=== PATIENT | male | born 1980 | race African-American/Black ===

== ENCOUNTER 2019-04-19 16:23 | Emergency (ER) | payer OTHER ==
[~2019-04-19] VITALS: Ht 188 cm; Wt 158.8 kg
--- NOTE | 2019-04-19 16:27 | NUR ---
"[id number] AND [employer], INCUSTODY, BROKEN INTO PRIVATE [facility] BUILDING RESTAURANT, LAC ON THE RIGHT HAND" PT ON MONITOR, VSSEARL NOTED, PENDING MD GOODEN
--- NOTE | 2019-04-19 16:49 | NUR ---
JENNIFER WASHINGTON --[facility] INTENSIVE [facility]ARE [facility]
[2019-04-19 17:06] LABS: BASOPHILS # (AUTO) 0.1 /CMM (0.0-0.2); BASOPHILS % (AUTO) 0.9 % (0.0-2.0); EOSINOPHILS % (AUTO) 2.2 % (0.0-6.0); HEMATOCRIT 39 % (39-51); HEMOGLOBIN 12.8 g/dL (13.5-17.5); LYMPHOCYTES # (AUTO) 1.3 /CMM (0.8-4.8); LYMPHOCYTES % (AUTO) 19.9 % (20.0-44.0); MEAN CORPUSCULAR HGB CONC 33 g/dl (31.0-36.0); MEAN CORPUSCULAR VOLUME 85 fL (80-96); MONOCYTES # (AUTO) 0.9 /CMM (0.1-1.30); MONOCYTES % (AUTO) 13.5 % (2.0-12.0); NEUTROPHILS # (AUTO) 4.3 /CMM (1.8-8.9); NEUTROPHILS % (AUTO) 63.5 % (43.0-81.0); PLATELET COUNT (AUTO) 391 /CMM (150-450); RED BLOOD CELL COUNT(AUTO) 4.63 MIL/uL (4.5-6.0); WHITE BLOOD COUNT (AUTO) 6.7 K/uL (4.3-11.0)
--- NOTE | 2019-04-19 17:07 | NUR ---
CALLED DERRICK [phone] [facility].
--- NOTE | 2019-04-19 17:15 | NUR ---
[phone] SUNIL ROSS --MENTAL HEALTH CLINICIAN
[2019-04-19 17:28] LABS: APPEARANCE,URINE Clear (CLEAR); BILIRUBIN,URINE Negative (NEGATIVE); BLOOD, URINE Negative Ery/uL (NEGATIVE); COLOR,URINE Yellow (YELLOW); KETONES,URINE Trace (NEGATIVE); LEUKOCYTE ESTERASE ,URINE Negative (NEGATIVE); NITRITE, URINE Negative (NEGATIVE); PH,URINE 5.5 (5.0-8.0); PROTEIN,URINE Trace mg/dl (NEGATIVE); UGLUCOSE 100 MG/DL mg/dL (NEGATIVE)
[2019-04-19] MEDS ORDERED: LIDOCAINE 1%-EPI 1:100,000 20 ML VIAL ONE (17:40)
[2019-04-19] MEDS ORDERED: LIDOCAINE /MPF 1% VIAL 5 ML VIAL ONE (17:41)
[2019-04-19] MEDS ORDERED: TDAP [DIPH/PERTUSSIS/TET] 0.5 ML VIAL IM ONE ×2 (18:00→19:51)
[2019-04-19 18:04] LABS: BACTERIA,URINE Moderate /HPF (None Seen); RBC,URINE 0-2 /HPF (0-2); SQUAMOUS EPITHELIAL CELL,UR Many /HPF (None Seen); WBC,URINE 0-2 /HPF (0-3)
[2019-04-19 18:04] LABS: CARBON DIOXIDE 27 mmol/L (21-32); CHLORIDE 108 mmol/L (98-107); CREATININE 0.9 mg/dL (0.6-1.3); GLUCOSE 211 mg/dL (74-106); POTASSIUM 3.9 mmol/L (3.5-5.1); SODIUM SERUM 144 mmol/L (136-145); UREA NITROGEN, BLOOD 10 mg/dL (7-18)
[2019-04-19 18:10] LABS: ALANINE AMINOTRANSFERASE 57 U/L (12-78); ALBUMIN 3.3 g/dL (3.4-5.0); ALCOHOL, BLOOD 5 mg/dL (0-0); ALKALINE PHOSPHATASE 94 U/L (46-116); ASPARTATE AMINOTRANSFERASE 41 U/L (15-37); BILIRUBIN,DIRECT 0.1 mg/dL (0.0-0.2); BILIRUBIN,TOTAL 0.5 mg/dL (0.2-1.0); TOTAL PROTEIN, SERUM 6.8 g/dL (6.4-8.2)
[2019-04-19 18:11] LABS: ACETAMINOPHEN < 2 ug/ml (10-30); SALICYLATE 0.3 mg/dL (2.8-20.0)
--- NOTE | 2019-04-19 20:50 | NUR ---
PT BROUGHT BY RADIOLOGY TO CT
--- NOTE | 2019-04-19 22:58 | NUR ---
PER YAKELIN MEJIA, PT WAS PRESENTED TO DEJON MD, PER YAKELIN, HAVE PT EVALUATED ONCE PATIENT IS MORE AWAKE.
--- NOTE | 2019-04-19 22:59 | NUR ---
PT ASLEEP, NAD NOTED, -SOB, AROUSABLE, RESPONSIVE TO PAIN
--- NOTE | 2019-04-20 00:55 | NUR ---
PT AWAKE. VERBALLY AGGRESSIVE TOWARDS STAFF. PT THRASHING IN GURNEY, ATTEMPTING TO FLIP OVER. ATTEMPTED TO REORIENT PT AND KEEP CALM, UNSUCCESSFULL. SECURITY AND ER MD AT BEDSIDE
[2019-04-20] MEDS ORDERED: diphenhydrAMINE HCL 50 MG/ML VIAL ONE (01:00)
[2019-04-20] MEDS ORDERED: diphenhydrAMINE HCL 50 MG/ML VIAL IV ONE (01:00)
[2019-04-20] MEDS ORDERED: HALOPERIDOL LACTATE INJ 5 MG/ML VIAL IM ONE ×2 (01:00→10:30)
[2019-04-20] MEDS ORDERED: HALOPERIDOL LACTATE INJ 5 MG/ML VIAL ONE ×2 (01:01→10:30)
--- NOTE | 2019-04-20 02:22 | NUR ---
pt resting in bed comfortably. easily aroused. vss at this time. - verbal aggression noted. md aware
--- NOTE | 2019-04-20 04:15 | NUR ---
Patient is resting comfortably in bed with eyes closed. Easily aroused. VSS
--- NOTE | 2019-04-20 04:16 | NUR ---
SPOKE WITH PT'S MOTHER. MOTHER IS REQUESTING FOR PLACEMENT AT [facility] AND TO BE CALLED WHEN THE PT IS BEING EVALUATED BY PET TEAM
[2019-04-20] MEDS ORDERED: LORAZEPAM INJ 2 MG/ML VIAL ONE (10:30)
[2019-04-20] MEDS ORDERED: LORAZEPAM INJ 2 MG/ML VIAL IM ONE (10:30)
--- NOTE | 2019-04-20 10:41 | NUR ---
PAULA TAVERA CALLED FOR EVAL PER DR PHILLIPS
--- NOTE | 2019-04-20 17:13 | NUR ---
CALLED BROTHER REGARDING DISCHARGE TRANSPORTATION, LEFT VOICEMAIL
--- NOTE | 2019-04-20 18:00 | NUR ---
CALLED MOTHER WHO STATES TO CALL SISTER DILEEP REGARDING DISCHARGE TRANSPORTATION, CONTACT INFO [phone], LEFT VOICEMAIL.
--- NOTE | 2019-04-20 18:38 | NUR ---
Pinky [employer] PORTAL DEVELOPER on site for eval
--- NOTE | 2019-04-21 00:15 | NUR ---
PT AWAKE AND BECAME VERBALLY AND PHYSICALLY AGGRESSIVE. THRASHING IN BED AND ATTEMPTING TO FLIP GURNEY. AWARE, SECURITY AT BEDSIDE
[2019-04-21] MEDS ORDERED: HALOPERIDOL LACTATE INJ 5 MG/ML VIAL ONE (00:17)
[2019-04-21] MEDS ORDERED: LORAZEPAM INJ 2 MG/ML VIAL ONE (00:18)
[2019-04-21] MEDS ORDERED: LORAZEPAM INJ 2 MG/ML VIAL IM ONE (00:30)
[2019-04-21] MEDS ORDERED: HALOPERIDOL LACTATE INJ 5 MG/ML VIAL IM ONE (00:30)
--- NOTE | 2019-04-21 03:32 | NUR ---
PT RESTING IN BED. VITAL SIGNS STABLE. SITTER AT BEDSIDE. WILL CONTINUE TO MONITOR
--- NOTE | 2019-04-21 05:23 | NUR ---
Pt in contact with department of mental health, they will get into contact with us regarding patient. family wants to transfer to [facility] for evaluation. family willing to pay transfer fees to be transported to [facility].
--- NOTE | 2019-04-21 05:26 | NUR ---
Abelardo mcgowan in EDM - 04/21/19 at 0528 by JESSICA PT WILL BE TRANSFERRED TO [facility]. NUMBER FOR REPORT: [phone] S ETA [phone]
--- NOTE | 2019-04-21 06:02 | NUR ---
PT MORE CALM, PROVIDED PT WITH SANDWICH AND WATER
--- NOTE | 2019-04-21 06:56 | NUR ---
PT CALM AND COOPERATIVE. AMBULATORY TO RESTROOM WITH STEADY GAIT.
[2019-04-21] MEDS ORDERED: BENZTROPINE MESYLATE (1 MG) 1 MG TABLET ONE (08:29)
[2019-04-21] MEDS ORDERED: BENZTROPINE MESYLATE (1 MG) 1 MG TABLET PO ONE (08:30)
--- NOTE | 2019-04-21 08:30 | NUR ---
COREY CISSE AT BEDSIDE FOR EVAL.
--- NOTE | 2019-04-21 08:36 | NUR ---
FOOD TRAY PROVIDED.
--- NOTE | 2019-04-21 09:36 | NUR ---
HORTENCIA TAVERA AT BEDSIDE FOR EVAL.
[2019-04-21 09:37] VITALS: BP 151/95
--- NOTE | 2019-04-21 10:50 | NUR ---
ART TELEMETRY MONITOR AT BEDSIDE FOR EVAL.
--- NOTE | 2019-04-21 13:32 | NUR ---
BED#SOUTH 4A ACCEPTING FACILITY: [facility] ACCEPTING MD: DR. WANG PHONE NUMBER TO GIVE REPORT TO: [phone]
--- NOTE | 2019-04-21 13:50 | NUR ---
CALLED [facility] FOR BLS TRANSPORT. ETA 2 HOURS. 1530 PICKUP. TRIP NUMBER [phone].
--- NOTE | 2019-04-21 13:58 | NUR ---
REPORT GIVEN TO JAN MONK AT [facility].
--- NOTE | 2019-04-21 15:59 | NUR ---
PT LEFT VIA [facility]IVATE AMBULANCE, PT ON A 5150 HOLD; PTL EFT INS TABLE CONDITION, VSS, NAD NOTED. REPORT GIVEN TO AMBULANCE STAFF
== END 2019-04-21 16:00 ==
LOC: ER 16:29
DX: S61.214A Laceration without foreign body of right ring finger without damage to nail, initial encounter (principal); F19.10 Other psychoactive substance abuse, uncomplicated; E11.9 Type 2 diabetes mellitus without complications; F41.9 Anxiety disorder, unspecified; F31.9 Bipolar disorder, unspecified; F12.10 Cannabis abuse, uncomplicated; F15.10 Other stimulant abuse, uncomplicated; F29 Unspecified psychosis not due to a substance or known physiological condition; F25.9 Schizoaffective disorder, unspecified; W25.XXXA Contact with sharp glass, initial encounter; Y93.89 Activity, other specified; Y92.511 Restaurant or cafe as the place of occurrence of the external cause; Y99.8 Other external cause status
CPT/HCPCS: 12002; 36415; 70450; 73130; 80048; 80076; 80305; 80307; 80329; 81001; 82962; 85025; 87086; 90471; 90715; 96372 ×5; 96374; 99291; A6403 ×2; G0480; J1200; J1630 ×3; J2060 ×2; J3490 ×2; 81000-TC

== ENCOUNTER 2019-05-11 17:19 | Emergency (ER) | payer OTHER ==
[~2019-05-11] VITALS: Ht 188 cm; Wt 158.8 kg
[2019-05-11 17:50] VITALS: BP 162/92
--- NOTE | 2019-05-11 17:52 | NUR ---
[id number], from the street for bizzarre behavior, screaming, denies SI/HI. on room air, breathing evenly and unlabored. Sitter at bedside. patient is calm at the moment. AMbulatory with steady gait. will continue to monitor accordingly.
--- NOTE | 2019-05-11 17:53 | NUR ---
called security for wanding.
--- NOTE | 2019-05-11 18:00 | NUR ---
urine collected and sent to lab
--- NOTE | 2019-05-11 18:00 | NUR ---
security at bedside for wanding
[2019-05-11 18:19] LABS: APPEARANCE,URINE Clear (CLEAR); BILIRUBIN,URINE Negative (NEGATIVE); BLOOD, URINE Negative Ery/uL (NEGATIVE); COLOR,URINE Yellow (YELLOW); KETONES,URINE Negative (NEGATIVE); LEUKOCYTE ESTERASE ,URINE Negative (NEGATIVE); NITRITE, URINE Negative (NEGATIVE); PH,URINE 5.5 (5.0-8.0); PROTEIN,URINE Negative (NEGATIVE); UGLUCOSE Negative (NEGATIVE); UROBILINOGEN,URINE 0.2 EU/dL (0.2)
[2019-05-11 18:30] LABS: BASOPHILS % (AUTO) 0.5 % (0.0-2.0); HEMATOCRIT 37 % (39-51); HEMOGLOBIN 12.3 g/dL (13.5-17.5); LYMPHOCYTES # (AUTO) 1.7 /CMM (0.8-4.8); LYMPHOCYTES % (AUTO) 21.2 % (20.0-44.0); MEAN CORPUSCULAR HGB CONC 33 g/dl (31.0-36.0); MEAN CORPUSCULAR VOLUME 84 fL (80-96); MONOCYTES # (AUTO) 0.8 /CMM (0.1-1.30); MONOCYTES % (AUTO) 9.7 % (2.0-12.0); NEUTROPHILS # (AUTO) 5.1 /CMM (1.8-8.9); NEUTROPHILS % (AUTO) 62.6 % (43.0-81.0); PLATELET COUNT (AUTO) 375 /CMM (150-450); RED BLOOD CELL COUNT(AUTO) 4.47 MIL/uL (4.5-6.0); WHITE BLOOD COUNT (AUTO) 8.2 K/uL (4.3-11.0)
[2019-05-11 19:04] LABS: ALANINE AMINOTRANSFERASE 39 U/L (12-78); ALBUMIN 3.3 g/dL (3.4-5.0); ALCOHOL, BLOOD < 3 mg/dL (0-0); ALKALINE PHOSPHATASE 102 U/L (46-116); ASPARTATE AMINOTRANSFERASE 21 U/L (15-37); BILIRUBIN,DIRECT 0.1 mg/dL (0.0-0.2); BILIRUBIN,TOTAL 0.2 mg/dL (0.2-1.0); CALCIUM, SERUM 9.2 mg/dL (8.5-10.1); CARBON DIOXIDE 26 mmol/L (21-32); CHLORIDE 107 mmol/L (98-107); CREATININE 0.6 mg/dL (0.6-1.3); GLUCOSE 132 mg/dL (74-106); POTASSIUM 3.6 mmol/L (3.5-5.1); SODIUM SERUM 142 mmol/L (136-145); TOTAL PROTEIN, SERUM 7.1 g/dL (6.4-8.2); UREA NITROGEN, BLOOD 8 mg/dL (7-18)
[2019-05-11 19:06] LABS: ACETAMINOPHEN < 2 ug/ml (10-30); SALICYLATE 0.7 mg/dL (2.8-20.0)
--- NOTE | 2019-05-11 20:15 | NUR ---
PER PT CAREGIVER GENA RIOS [phone] AT "[facility], PLEASE CALL HIM FOR DISCHARGE TRANSPORTATION IF PT NOT ADMITTED FOR PSYCH.
[2019-05-11] MEDS ORDERED: OLANZAPINE 10 MG VIAL IM ONE (22:30)
--- NOTE | 2019-05-11 22:40 | NUR ---
CALLED GENA RIOS, PT'S CAREGIVER AT [facility]. CAREGIVER WAS NOT THERE VOICE MESSAGE LEFT. PT WAS CLEARED FOR DISCHARGE BY DR. WOODY. PT REC'D A SANDWICH, JUICE, GRIPPER SOCKS X 3, AND COPY OF ALL LABS. PT REFUSED ALL HOMELESS RESOURCES. PT REFUSED PLACEMENT AND STATED THAT HE HAS A PLACE TO LIVE AND WILL BE THERE IN [address] WOODY IS AWARE. PT AMBULATED OUT WITH A STEADY GAIT.
--- NOTE | 2019-05-11 22:40 | NUR ---
PT DID NOT WANT TO WAIT AND DID NOT WANT A TAP CARD. RESP WERE EVEN AND UNLABORED.
== END 2019-05-11 22:40 | disposition home or self-care (01) ==
LOC: ER 17:20
DX: F29 Unspecified psychosis not due to a substance or known physiological condition (principal); D64.9 Anemia, unspecified; F19.10 Other psychoactive substance abuse, uncomplicated; F41.9 Anxiety disorder, unspecified; F31.9 Bipolar disorder, unspecified; F20.9 Schizophrenia, unspecified; F12.10 Cannabis abuse, uncomplicated; F15.10 Other stimulant abuse, uncomplicated; Z59.0 Homelessness
CPT/HCPCS: 36415; 80048; 80076; 80305; 80307; 80329; 81001; 85025; 99284; G0480; 81000-TC